=== PATIENT | female | born 1940 | race Caucasian/White ===

== ENCOUNTER 2024-06-14 05:23 | Emergency (ER) | payer OTHER ==
[2024-06-14 05:30] VITALS: BP 100/82; PULSE 72; RESP 17; TEMP 97.8; BMI 16.2
[2024-06-14] MEDS ORDERED: ACETAMINOPHEN 325 MG TABLET (FP) ONE (06:01)
[2024-06-14] MEDS ORDERED: LIDOCAINE 4% PATCH TP ONE (06:01)
[2024-06-14] MEDS: LIDOCAINE 4% PATCH TP ONE (06:10)
[2024-06-14] MEDS: ACETAMINOPHEN 500 MG TABLET (FP) PO ONE (06:11)
[2024-06-14] MEDS ORDERED: IBUPROFEN 400 MG TABLET (FP) PO ONE (09:57)
[2024-06-14] MEDS: IBUPROFEN 400 MG TABLET (FP) PO ONE (09:59)
[2024-06-14] MEDS ORDERED: LIDOCAINE PATCH REMOVAL MC ONE (18:00)
== END 2024-06-14 10:45 | disposition home or self-care (01) ==
LOC: JER 05:23
DX: S22.31XA Fracture of one rib, right side, initial encounter for closed fracture (principal); W05.0XXA Fall from non-moving wheelchair, initial encounter
CPT/HCPCS: 71101-TC-RT-FY; 99283-25

== ENCOUNTER 2024-08-06 18:34 | Inpatient (IN) | payer OTHER ==
[2024-08-06 18:40] VITALS: BMI 16.2
[2024-08-06 19:30] LABS: BASO % 0.3 % (0-2.0); EOS % 1.6 % (0-4.5); HEMATOCRIT 36.4 % (32.4-45.2); HEMOGLOBIN 12.4 GM/dL (10.7-15.3); LYMPH % 3.5 % (8-40); MCH 30.6 pg (25.7-33.7); MCHC 34.1 g/dl (32.0-36.0); MEAN CELL VOLUME 89.7 fl (80-96); MEAN PLT VOLUME 7.2 fl (7.5-11.1); MONO % 5.7 % (3.8-10.2); NEUT % 88.9 % (42.8-82.8); PLATELET COUNT 235 10^3/uL (134-434); RBC 4.05 M/mm3 (3.60-5.2); RDW 14.9 % (11.6-15.6); WHITE BLOOD COUNT 6.9 K/mm3 (4.0-10.0)
[2024-08-06 19:52] LABS: POTASSIUM 3.3 mmol/L (3.5-5.1)
[2024-08-06 19:56] LABS: CALCIUM 8.9 mg/dL (8.5-10.1)
[2024-08-06 19:57] LABS: ALBUMIN 3.9 g/dl (3.4-5.0); BLOOD UREA NITROGEN 22.9 mg/dL (7-18)
[2024-08-06 20:00] LABS: CREATININE 0.6 mg/dL (0.55-1.3)
[2024-08-06 20:01] LABS: BILIRUBIN,TOTAL 0.4 mg/dL (0.2-1); TOT PROT 6.8 g/dl (6.4-8.2)
[2024-08-06 20:50] LABS: EPI CELLS 3 /uL (0-25.1); HYALINE CASTS 0 /uL (0-3.1); URINE APPEARANCE CLEAR; URINE BACTERIA 1 /uL (0-1359); URINE BILIRUBIN NEGATIVE (NEGATIVE); URINE COLOR YELLOW; URINE GLUCOSE (UA) NEGATIVE (NEGATIVE); URINE KETONE TRACE (NEGATIVE); URINE LEUK ESTERASE NEGATIVE (NEGATIVE); URINE NITRITE NEGATIVE (NEGATIVE); URINE PROTEIN 1+ (NEGATIVE); URINE RBC 116 /uL (0-23.9); URINE UROBILINOGEN 0.2 mg/dL (0.2-1.0); URINE WBC 4 /uL (0-25.8)
[2024-08-06] MEDS ORDERED: KCL 10 MEQ IVPB 10 MEQ/100 ML INFUS.BAG IVPB ONE (21:50)
[2024-08-06] MEDS: KCL 10 MEQ IVPB 10 MEQ/100 ML INFUS.BAG IVPB SCH (21:56)
[2024-08-07] MEDS ORDERED: ACETAMINOPHEN 325 MG TABLET (FP) PO PRN (00:38)
[2024-08-07] MEDS ORDERED: ONDANSETRON 4 MG/2 ML VIAL IVPB PRN (00:41)
[2024-08-07] MEDS ORDERED: MELATONIN 5 MG TABLETS ONE (00:46)
[2024-08-07] MEDS: PANTOPRAZOLE 40 MG TABLET PO SCH (00:50)
[2024-08-07] MEDS: MELATONIN 5 MG TABLETS PO ONE (00:50)
[2024-08-07] MEDS: D5-1/2NS+30 MEQ KCL - 30 MEQ/1,000 ML INFUS.BAG IV SCH (01:58)
[2024-08-07] MEDS: HEPARIN NA (PORCINE) 5,000 UNITS/ML 1ML VIAL SQ SCH (05:53)
[2024-08-07] MEDS ORDERED: HEPARIN NA (PORCINE) 5,000 UNITS/ML 1ML VIAL SQ SCH (06:00)
[2024-08-07 08:15] LABS: BASO % 0.1 % (0-2.0); EOS % 0.3 % (0-4.5); HEMATOCRIT 34.1 % (32.4-45.2); HEMOGLOBIN 11.1 GM/dL (10.7-15.3); LYMPH % 12.5 % (8-40); MCH 29.5 pg (25.7-33.7); MCHC 32.4 g/dl (32.0-36.0); MEAN CELL VOLUME 90.9 fl (80-96); MONO % 10.7 % (3.8-10.2); NEUT % 76.4 % (42.8-82.8); PLATELET COUNT 224 10^3/uL (134-434); RBC 3.75 M/mm3 (3.60-5.2); RDW 15.1 % (11.6-15.6); WHITE BLOOD COUNT 4.6 K/mm3 (4.0-10.0)
[2024-08-07 08:34] LABS: POTASSIUM 3.3 mmol/L (3.5-5.1)
[2024-08-07 08:37] LABS: CALCIUM 8.8 mg/dL (8.5-10.1)
[2024-08-07 08:38] LABS: BLOOD UREA NITROGEN 19.8 mg/dL (7-18)
[2024-08-07 08:41] LABS: CREATININE 0.6 mg/dL (0.55-1.3)
[2024-08-07] MEDS: ASPIRIN COATED 81 MG TABLET.EC PO SCH (09:24)
[2024-08-07] MEDS: SERTRALINE HCL 50 MG TABLET (FP) PO SCH (09:24)
[2024-08-07] MEDS: SENNOSIDES 8.6MG TABLET (FP) PO SCH (09:25)
[2024-08-07] MEDS: metoPROLOL SUCCINATE 25 MG TAB.SR.24H (FP) PO SCH (09:25)
[2024-08-07] MEDS: POTASSIUM CHLORIDE ORAL LIQUID 20 MEQ/15 ML PO ONE (09:44)
[2024-08-07] MEDS ORDERED: CHOLECALCIFEROL (VIT D3) 1,000 UNIT (25 MCG) TABLET PO SCH (10:00)
[2024-08-07] MEDS: CHOLECALCIFEROL (VIT D3) 5000 UNITS (125 MCG) CAP PO SCH (10:36)
[2024-08-07] MEDS: MULTIVITAMINS THER W-MINERALS COMBO TABLET (FP) PO SCH (10:36)
[2024-08-07] MEDS: ATORVASTATIN CA 40 MG TABLET (FP) PO SCH (22:14)
[2024-08-08 07:57] LABS: HEMATOCRIT 32.8 % (32.4-45.2); HEMOGLOBIN 11.1 GM/dL (10.7-15.3); MCH 30.6 pg (25.7-33.7); MCHC 33.9 g/dl (32.0-36.0); MEAN CELL VOLUME 90.1 fl (80-96); MEAN PLT VOLUME 7.7 fl (7.5-11.1); PLATELET COUNT 188 10^3/uL (134-434); RBC 3.64 M/mm3 (3.60-5.2); RDW 15.3 % (11.6-15.6); WHITE BLOOD COUNT 3.8 K/mm3 (4.0-10.0)
[2024-08-08 08:19] LABS: POTASSIUM 3.7 mmol/L (3.5-5.1)
[2024-08-08 08:23] LABS: BLOOD UREA NITROGEN 10.3 mg/dL (7-18); CALCIUM 8.5 mg/dL (8.5-10.1)
[2024-08-08 08:27] LABS: CREATININE 0.5 mg/dL (0.55-1.3)
[2024-08-09 07:51] LABS: BASO % 0.4 % (0-2.0); EOS % 2.3 % (0-4.5); HEMATOCRIT 33.5 % (32.4-45.2); LYMPH % 36.1 % (8-40); MCH 29.8 pg (25.7-33.7); MCHC 32.9 g/dl (32.0-36.0); MEAN CELL VOLUME 90.6 fl (80-96); MONO % 14.6 % (3.8-10.2); NEUT % 46.6 % (42.8-82.8); PLATELET COUNT 198 10^3/uL (134-434); RBC 3.69 M/mm3 (3.60-5.2); RDW 14.7 % (11.6-15.6); WHITE BLOOD COUNT 4.1 K/mm3 (4.0-10.0)
[2024-08-09 08:14] LABS: POTASSIUM 3.8 mmol/L (3.5-5.1)
[2024-08-09 08:33] LABS: BLOOD UREA NITROGEN 12.3 mg/dL (7-18)
[2024-08-09 08:34] LABS: CALCIUM 8.5 mg/dL (8.5-10.1)
[2024-08-09 08:36] LABS: CREATININE 0.4 mg/dL (0.55-1.3)
[2024-08-09 13:06] VITALS: TEMP 98.6
[2024-08-09 14:51] VITALS: BP 109/65; PULSE 72; RESP 18
== END 2024-08-09 16:45 | disposition home or self-care (01) | DRG 640 ==
LOC: JER 18:34 → JERBED 19:17 → J4S 08-07 01:37 → OBSVTOIN 08-07 10:34
PROVIDERS: ADMIT Internal Medicine; ATTEND Internal Medicine
DX: E86.0 Dehydration (principal); E43 Unspecified severe protein-calorie malnutrition; Z68.1 Body mass index [BMI] 19.9 or less, adult; I10 Essential (primary) hypertension; E78.5 Hyperlipidemia, unspecified; R55 Syncope and collapse; H81.09 Meniere's disease, unspecified ear; F03.90 Unspecified dementia, unspecified severity, without behavioral disturbance, psychotic disturbance, mood disturbance, and anxiety; E87.6 Hypokalemia
CPT/HCPCS: 0241U-QW; 36415; 70450-TC; 71045-TC-FY; 72125-TC; 72170-TC-FY; 80048; 80053; 81003; 83735; 84100; 84484; 85025; 87086; 93005; 93010; 93306-TC; 97116-GP; 97161-GP; 99285-25; G0378; J1644